=== PATIENT | male | born 1975 | race Caucasian/White ===

== ENCOUNTER 2020-04-17 19:48 | Emergency (ER) | payer BC ==
[~2020-04-17] VITALS: Ht 185.4 cm; Wt 108.9 kg
[~2020-04-17 19:48] MED LIST: CHLO25B PO; HYDACE5 PO
[2020-04-17 20:06] LABS: BASOPHILS ABSOLUTE AUTO 0.05 K/mm3 (0.00-0.23); BASOPHILS PERCENT AUTO 1 % (0-2); EOSINOPHILS ABSOLUTE AUTO 0.17 K/mm3 (0.00-0.68); EOSINOPHILS PERCENT AUTO 2 % (0-6); Hematocrit 41.1 % (37.0-53.0); Hemoglobin 13.8 g/dL (13.5-17.5); IMMATURE GRAN ABSOLUTE AUTO 0.03 K/mm3 (0.00-0.10); IMMATURE GRAN PERCENT AUTO 0 % (0-1); LYMPHOCYTES PERCENT AUTO 42 % (21-46); MONOCYTES ABSOLUTE AUTO 0.64 K/mm3 (0.16-1.47); MONOCYTES PERCENT AUTO 9 % (4-13); Mean Corpuscular HGB 30.8 pg (26.0-34.0); Mean Corpuscular HGB Conc 33.6 g/dL (31.5-36.5); Mean Corpuscular Volume 92 fL (80-100); Mean Platelet Volume 10.2 fL (9.1-12.4); NEUTROPHILS ABSOLUTE AUTO 3.45 K/mm3 (1.96-9.15); NEUTROPHILS PERCENT AUTO 46 % (41-73); Platelet Count 220 K/mm3 (150-400); RDW Standard Deviation 40.8 fL (35.1-46.3); Red Blood Cell Count 4.48 M/mm3 (4.30-5.90); White Blood Cell Count 7.54 K/mm3 (4.00-11.30)
[2020-04-17 20:24] LABS: Alanine Aminotransfer (ALT/SGP 36 U/L (12-78); Albumin, Blood 3.6 g/dL (3.4-5.0); Alk Phos 52 U/L (50-136); Anion Gap 6 mmol/L (6-16); Aspartate Aminotrans (AST/SGOT 24 U/L (12-37); Bilirubin, Total 0.2 mg/dL (0.1-1.0); Blood Urea Nitrogen 20 mg/dL (8-24); CO2, Blood 26 mmol/L (21-32); Calcium, Blood 8.3 mg/dL (8.5-10.1); Chloride, Blood 105 mmol/L (98-108); Creatinine, Blood 0.87 mg/dL (0.60-1.20); Ethanol (Alcohol), Blood, Med 172 mg/dL; Globulin, Blood 3.7 g/dL (2.2-4.0); Glomerular Filtration Rate >60 (60-); Glucose, Blood 96 mg/dL (70-99); Potassium, Blood 4.1 mmol/L (3.5-5.5); Sodium, Blood 137 mmol/L (136-145); Total Protein, Blood 7.3 g/dL (6.4-8.2)
[2020-04-17] MEDS ORDERED: PAXIL40 M1 PO (21:24)
[2020-04-17] MEDS ORDERED: FLUTICASONE-SA1 EAC9 INH (21:24)
[2020-04-17] MEDS ORDERED: HYDCHL25 PO (21:25)
[2020-04-17] MEDS ORDERED: CLON.5 PO (21:25)
[2020-04-17] MEDS ORDERED: AMLODIPINE BESY10 MG PO (21:25)
[2020-04-17] MEDS ORDERED: METO50ER PO (21:25)
[2020-04-17] MEDS ORDERED: Ventolin/Prove6.7 GM INH (22:01)
[2020-04-17] MEDS ORDERED: IBUP400 PO (22:34)
== END 2020-04-17 22:43 | disposition home or self-care (01) ==
LOC: ER 19:48
PROVIDERS: Emergency Medicine
DX: S16.1XXA Strain of muscle, fascia and tendon at neck level, initial encounter (principal); S20.219A Contusion of unspecified front wall of thorax, initial encounter; Z23 Encounter for immunization; Z79.899 Other long term (current) drug therapy; V48.5XXA Car driver injured in noncollision transport accident in traffic accident, initial encounter; Y92.410 Unspecified street and highway as the place of occurrence of the external cause
CPT/HCPCS: 70450; 71260; 72125; 74177; 80053; 85025; 86850; 86900; 86901; 90471; 90714; 93005; 93010; 96374-59; 96375; 99285-25; G0480; J1170; J2405; Q9967

== ENCOUNTER 2023-07-24 00:47 | Day surgery (SDC) | payer BC, OTHER ==
[~2023-07-24] VITALS: Ht 185.4 cm; Wt 136.3 kg
[2023-07-24 16:52] VITALS: BP 164/115
== END 2023-07-24 17:15 | disposition home or self-care (01) ==
LOC: ATC 00:47
DX: L03.116 Cellulitis of left lower limb (principal); I13.0 Hypertensive heart and chronic kidney disease with heart failure and stage 1 through stage 4 chronic kidney disease, or unspecified chronic kidney disease; N18.9 Chronic kidney disease, unspecified; I50.9 Heart failure, unspecified; J44.9 Chronic obstructive pulmonary disease, unspecified; Z79.899 Other long term (current) drug therapy; Z79.82 Long term (current) use of aspirin; Z88.8 Allergy status to other drugs, medicaments and biological substances

== ENCOUNTER 2023-07-25 04:25 | Day surgery (SDC) | payer BC, OTHER ==
[~2023-07-25 04:25] MED LIST changes: +ACAMPROSATE CA333 MG PO; +AMLODIPINE BESY10 MG PO; +Aspir 8181 MG PO; +CARV25 PO; +CATAPRES0.1 MG PO; +CATAPRES0.2 M1 PO; +CLON.5 PO; +CUBICIN RF500 M1 IV; +CYMBALTA30 M1 PO; +FLUT1DIS5 INH; +FLUTICASONE-SA1 EAC9 INH; +HYDCHL25 PO; +IBUP400 PO; +METO50ER PO; +PAXIL40 M1 PO; +POTCHL20ER PO; +SOAANZ40 M1 PO; +SPIR25 PO; +Ventolin/Prove6.7 GM INH
[2023-07-25] MEDS ORDERED: NS IV SCH (06:00)
[2023-07-25] MEDS ORDERED: DAPTOMYCIN IV SCH (06:00)
[2023-07-25 15:41] VITALS: BP 162/98
== END 2023-07-25 16:03 | disposition home or self-care (01) ==
LOC: ATC 04:25
DX: L03.116 Cellulitis of left lower limb (principal); I13.0 Hypertensive heart and chronic kidney disease with heart failure and stage 1 through stage 4 chronic kidney disease, or unspecified chronic kidney disease; N18.9 Chronic kidney disease, unspecified; I50.9 Heart failure, unspecified; J44.9 Chronic obstructive pulmonary disease, unspecified; F32.A Depression, unspecified; Z79.899 Other long term (current) drug therapy; Z79.82 Long term (current) use of aspirin; Z88.8 Allergy status to other drugs, medicaments and biological substances
CPT/HCPCS: 96365; J0878

== ENCOUNTER 2023-07-26 03:23 | Day surgery (SDC) | payer OTHER ==
[~2023-07-26] VITALS: Ht 185.4 cm; Wt 136.8 kg
[2023-07-26] MEDS ORDERED: DAPTOMYCIN IV SCH (06:00)
[2023-07-26] MEDS ORDERED: NS IV SCH (06:00)
[2023-07-26 15:28] VITALS: BP 177/107
== END 2023-07-26 15:49 | disposition home or self-care (01) ==
LOC: ATC 03:23
DX: L03.116 Cellulitis of left lower limb (principal); I13.0 Hypertensive heart and chronic kidney disease with heart failure and stage 1 through stage 4 chronic kidney disease, or unspecified chronic kidney disease; I50.9 Heart failure, unspecified; N18.9 Chronic kidney disease, unspecified; J44.9 Chronic obstructive pulmonary disease, unspecified; Z79.82 Long term (current) use of aspirin; Z79.51 Long term (current) use of inhaled steroids; Z79.899 Other long term (current) drug therapy; Z88.8 Allergy status to other drugs, medicaments and biological substances
CPT/HCPCS: 96365; J0878